=== PATIENT | female | born 1980 | race Caucasian/White ===

== ENCOUNTER 2020-03-31 10:13 | Inpatient (IN) | payer OTHER ==
[2020-03-31 12:20] VITALS: BMI 26.6
[2020-03-31] MEDS ORDERED: ACETAMINOPHEN 325 MG TABLET (FP) PO PRN ×2 (13:00)
[2020-03-31] MEDS ORDERED: MENTHOL/PHENOL 1 EACH UD MM PRN (13:00)
[2020-03-31] MEDS ORDERED: BISMUTH SUBSALICYLATE 524 MG/30 ML UD PO PRN (13:00)
[2020-03-31] MEDS ORDERED: MAG HYDROX/AL HYDROX/SIMETH 30 ML UNIT-DOSE CUP PO PRN (13:00)
[2020-03-31] MEDS ORDERED: MAGNESIUM CITRATE 300 ML BOTTLE PO PRN (13:00)
[2020-03-31] MEDS ORDERED: MAGNESIUM HYDROX 2400MG/30ML ORAL SUSPENSION 30 ML CUP PO PRN (13:00)
[2020-03-31] MEDS ORDERED: ONDANSETRON *ODT* 4 MG TABLET SL PRN (13:00)
[2020-03-31] MEDS ORDERED: NICOTINE POLACRILEX 2 MG GUM BUC PRN (13:00)
[2020-03-31] MEDS ORDERED: METHADONE HCL 10 MG TABLET (FOR DETOX USE ONLY) PO ONE (13:45)
[2020-03-31] MEDS: NICOTINE 7 MG/24 HOURS TOPICAL PATCH TD SCH (13:51)
[2020-03-31] MEDS ORDERED: hydrOXYzine PAMOATE 25 MG CAPSULE (FP) PO SCH (14:00)
[2020-03-31] MEDS ORDERED: ALBUTEROL SO4 HFA INHALER IH PRN (14:55)
[2020-03-31 17:54] LABS: POTASSIUM 3.9 mmol/L (3.5-5.1)
[2020-03-31 17:55] LABS: CALCIUM 8.9 mg/dL (8.5-10.1)
[2020-03-31 17:56] LABS: ALBUMIN 3.8 g/dl (3.4-5.0); BLOOD UREA NITROGEN 13.8 mg/dL (7-18); HEMOGLOBIN 15.4 GM/dL (10.7-15.3); MCH 31.1 pg (25.7-33.7); MCHC 33.5 g/dl (32.0-36.0); MEAN CELL VOLUME 92.8 fl (80-96); MEAN PLT VOLUME 10.2 fl (7.5-11.1); PLATELET COUNT 232 K/MM3 (134-434); RBC 4.95 M/mm3 (3.60-5.2); RDW 13.8 % (11.6-15.6); WHITE BLOOD COUNT 9.2 K/mm3 (4.0-10.0)
[2020-03-31 17:59] LABS: CREATININE 1.2 mg/dL (0.55-1.3)
[2020-03-31 18:00] LABS: BILIRUBIN,TOTAL 0.7 mg/dL (0.2-1); TOT PROT 7.6 g/dl (6.4-8.2)
[2020-03-31 18:54] LABS: HIV INTERPRETATION NEGATIVE (NEGATIVE)
[2020-03-31] MEDS: hydrOXYzine PAMOATE 25 MG CAPSULE (FP) PO PRN (22:31)
[2020-03-31] MEDS: METHOCARBAMOL 500 MG TABLET PO PRN (22:31)
[2020-03-31] MEDS: THIAMINE HCL 100 MG TABLET (FP) PO SCH (22:31)
[2020-03-31] MEDS: MELATONIN 5 MG TABLETS PO SCH (22:32)
[2020-04-01] MEDS: hydrOXYzine PAMOATE 25 MG CAPSULE (FP) PO PRN (05:44)
[2020-04-01] MEDS: cloNIDine HCL 0.1 MG TABLET PO PRN (05:45)
[2020-04-01] MEDS ORDERED: METHADONE HCL 5 MG TABLET (FOR DETOX USE ONLY) ONE (08:57)
[2020-04-01] MEDS ORDERED: METHADONE HCL 10 MG TABLET (FOR DETOX USE ONLY) ONE (08:57)
[2020-04-01] MEDS ORDERED: METHADONE (DETOX) 20 MG, METHADONE (DETOX) 5 MG PO ONE (10:00)
[2020-04-01] MEDS: METHOCARBAMOL 500 MG TABLET PO PRN (10:17)
[2020-04-01] MEDS: NICOTINE 7 MG/24 HOURS TOPICAL PATCH TD SCH (10:18)
[2020-04-01] MEDS: PRENATAL VITAMINS W/ FOLIC ACID TABLET (FP) PO SCH (10:18)
[2020-04-01] MEDS ORDERED: FLU VACCINE (FLULAVAL) PF 60 MCG/0.5 ML SYRINGE 2020-2021 IM ONE (12:00)
[2020-04-01] MEDS: diazePAM 5 MG TABLET PO PRN (22:29)
[2020-04-01] MEDS: THIAMINE HCL 100 MG TABLET (FP) PO SCH (22:30)
[2020-04-01] MEDS: MELATONIN 5 MG TABLETS PO SCH (22:30)
[2020-04-02] MEDS: hydrOXYzine PAMOATE 25 MG CAPSULE (FP) PO PRN (05:25)
[2020-04-02] MEDS: cloNIDine HCL 0.1 MG TABLET PO PRN (05:26)
[2020-04-02] MEDS ORDERED: METHADONE HCL 10 MG TABLET (FOR DETOX USE ONLY) PO ONE (10:00)
[2020-04-02] MEDS: IBUPROFEN 400 MG TABLET (FP) PO PRN (10:32)
[2020-04-02] MEDS: PRENATAL VITAMINS W/ FOLIC ACID TABLET (FP) PO SCH (10:32)
[2020-04-02] MEDS: NICOTINE 7 MG/24 HOURS TOPICAL PATCH TD SCH ×2 (10:32→14:01)
[2020-04-02] MEDS: diazePAM 5 MG TABLET PO PRN ×3 (10:33→19:47)
[2020-04-02] MEDS ORDERED: MASKS NR ONE (12:32)
[2020-04-02] MEDS: THIAMINE HCL 100 MG TABLET (FP) PO SCH (22:30)
[2020-04-02] MEDS: MELATONIN 5 MG TABLETS PO SCH (22:30)
[2020-04-03] MEDS: diazePAM 5 MG TABLET PO PRN ×5 (07:05→22:08)
[2020-04-03] MEDS ORDERED: METHADONE HCL 5 MG TABLET (FOR DETOX USE ONLY) ONE (09:52)
[2020-04-03] MEDS ORDERED: METHADONE HCL 10 MG TABLET (FOR DETOX USE ONLY) ONE (09:53)
[2020-04-03] MEDS ORDERED: METHADONE (DETOX) 10 MG, METHADONE (DETOX) 5 MG PO ONE (10:00)
[2020-04-03] MEDS: PRENATAL VITAMINS W/ FOLIC ACID TABLET (FP) PO SCH (10:19)
[2020-04-03] MEDS: NICOTINE 7 MG/24 HOURS TOPICAL PATCH TD SCH (10:24)
[2020-04-03] MEDS: hydrOXYzine PAMOATE 25 MG CAPSULE (FP) PO PRN ×2 (12:41→22:06)
[2020-04-03] MEDS: METHOCARBAMOL 500 MG TABLET PO PRN (12:41)
[2020-04-03] MEDS: IBUPROFEN 400 MG TABLET (FP) PO PRN (19:38)
[2020-04-03] MEDS: MELATONIN 5 MG TABLETS PO SCH (22:06)
[2020-04-03] MEDS: THIAMINE HCL 100 MG TABLET (FP) PO SCH (22:06)
[2020-04-04] MEDS: diazePAM 5 MG TABLET PO PRN ×3 (06:40→16:26)
[2020-04-04] MEDS: IBUPROFEN 400 MG TABLET (FP) PO PRN ×2 (09:42→17:03)
[2020-04-04] MEDS ORDERED: METHADONE HCL 10 MG TABLET (FOR DETOX USE ONLY) PO ONE (10:00)
[2020-04-04] MEDS: NICOTINE 7 MG/24 HOURS TOPICAL PATCH TD SCH (10:10)
[2020-04-04] MEDS: PRENATAL VITAMINS W/ FOLIC ACID TABLET (FP) PO SCH (10:11)
[2020-04-04] MEDS: METHOCARBAMOL 500 MG TABLET PO PRN ×2 (13:32→22:20)
[2020-04-04] MEDS: MELATONIN 5 MG TABLETS PO SCH (22:20)
[2020-04-04] MEDS: hydrOXYzine PAMOATE 25 MG CAPSULE (FP) PO PRN (22:20)
[2020-04-04] MEDS: THIAMINE HCL 100 MG TABLET (FP) PO SCH (22:20)
[2020-04-05] MEDS ORDERED: METHADONE HCL 5 MG TABLET (FOR DETOX USE ONLY) PO ONE (06:00)
[2020-04-05] MEDS: diazePAM 5 MG TABLET PO PRN (07:08)
[2020-04-05 07:57] VITALS: BP 119/73; PULSE 68; TEMP 97.3
== END 2020-04-05 08:55 | disposition home or self-care (01) | DRG 773 ==
LOC: YASAS 10:13 → Y6N 12:50
PROVIDERS: ADMIT Allergy & Immunology; ATTEND Allergy & Immunology
PROC: HZ2ZZZZ Detoxification Services for Substance Abuse Treatment (ICD-10-PCS; principal; 2020-03-31)
DX: F11.23 Opioid dependence with withdrawal (principal); F10.230 Alcohol dependence with withdrawal, uncomplicated; F14.20 Cocaine dependence, uncomplicated; F12.20 Cannabis dependence, uncomplicated; F17.210 Nicotine dependence, cigarettes, uncomplicated; F19.282 Other psychoactive substance dependence with psychoactive substance-induced sleep disorder; F19.24 Other psychoactive substance dependence with psychoactive substance-induced mood disorder; F34.1 Dysthymic disorder; F43.10 Post-traumatic stress disorder, unspecified; J45.20 Mild intermittent asthma, uncomplicated; L40.9 Psoriasis, unspecified; B18.2 Chronic viral hepatitis C; R63.4 Abnormal weight loss; Z68.26 Body mass index [BMI] 26.0-26.9, adult
CPT/HCPCS: 36415; 80053; 85027; 86780; 87389; 93005; 93010; C9803; J0735; U0003

== ENCOUNTER 2021-05-11 16:35 | Inpatient (IN) | payer OTHER ==
[2021-05-11 17:39] VITALS: BMI 22.2
[2021-05-11] MEDS ORDERED: ACETAMINOPHEN 325 MG TABLET (FP) PO PRN (18:42)
[2021-05-11] MEDS ORDERED: MAGNESIUM CITRATE 300 ML BOTTLE PO PRN (18:42)
[2021-05-11] MEDS ORDERED: BISMUTH SUBSALICYLATE 524 MG/30 ML PO PRN (18:42)
[2021-05-11] MEDS ORDERED: MAG HYDROX/AL HYDROX/SIMETH 30 ML UNIT-DOSE CUP PO PRN (18:42)
[2021-05-11] MEDS ORDERED: NICOTINE 10 MG CARTRIDGE (INHALER) IH PRN (18:42)
[2021-05-11] MEDS ORDERED: ONDANSETRON *ODT* 4 MG TABLET SL PRN (18:42)
[2021-05-11] MEDS ORDERED: MAGNESIUM HYDROX 2400MG/30ML ORAL SUSPENSION 30 ML CUP PO PRN (18:42)
[2021-05-11] MEDS ORDERED: MENTHOL/PHENOL 1 EACH UD MM PRN (18:42)
[2021-05-11] MEDS ORDERED: cloNIDine HCL 0.1 MG TABLET PO PRN (18:43)
[2021-05-11] MEDS ORDERED: ALBUTEROL SO4 HFA INHALER IH PRN ×2 (18:52→19:14)
[2021-05-11] MEDS ORDERED: METHOCARBAMOL 500 MG TABLET ONE (23:24)
[2021-05-11] MEDS ORDERED: ACETAMINOPHEN 325 MG TABLET (FP) ONE (23:24)
[2021-05-11] MEDS: PRENATAL VITAMINS W/ FOLIC ACID TABLET (FP) PO SCH (23:26)
[2021-05-11] MEDS: THIAMINE HCL 100 MG TABLET (FP) PO SCH (23:27)
[2021-05-11] MEDS: hydrOXYzine PAMOATE 25 MG CAPSULE (FP) PO SCH (23:27)
[2021-05-11] MEDS: MELATONIN 5 MG TABLETS PO SCH (23:27)
[2021-05-11] MEDS: METHOCARBAMOL 500 MG TABLET PO PRN (23:27)
[2021-05-11] MEDS: ACETAMINOPHEN 325 MG TABLET (FP) PO PRN (23:28)
[2021-05-12] MEDS: hydrOXYzine PAMOATE 25 MG CAPSULE (FP) PO SCH ×5 (05:30→21:39)
[2021-05-12] MEDS: ACETAMINOPHEN 325 MG TABLET (FP) PO PRN ×2 (05:30→21:39)
[2021-05-12] MEDS: METHOCARBAMOL 500 MG TABLET PO PRN ×2 (05:30→17:14)
[2021-05-12] MEDS: PRENATAL VITAMINS W/ FOLIC ACID TABLET (FP) PO SCH (10:45)
[2021-05-12] MEDS ORDERED: cloNIDine HCL 0.1 MG TABLET PO PRN (11:02)
[2021-05-12] MEDS ORDERED: methaDONE HCL 10 MG TABLET (FOR DETOX USE ONLY) PO ONE (11:02)
[2021-05-12 12:17] LABS: ALBUMIN 2.7 g/dl (3.4-5.0); BLOOD UREA NITROGEN 11.7 mg/dL (7-18); CALCIUM 7.8 mg/dL (8.5-10.1)
[2021-05-12 12:19] LABS: CREATININE 0.7 mg/dL (0.55-1.3)
[2021-05-12 12:20] LABS: HEMATOCRIT 38.7 % (32.4-45.2); HEMOGLOBIN 12.7 GM/dL (10.7-15.3); MCHC 32.9 g/dl (32.0-36.0); MEAN CELL VOLUME 91.4 fl (80-96); MEAN PLT VOLUME 10.4 fl (7.5-11.1); PLATELET COUNT 115 10^3/uL (134-434); RBC 4.24 M/mm3 (3.60-5.2); WHITE BLOOD COUNT 3.1 K/mm3 (4.0-10.0)
[2021-05-12 12:22] LABS: BILIRUBIN,TOTAL 0.7 mg/dL (0.2-1)
[2021-05-12] MEDS: MELATONIN 5 MG TABLETS PO SCH (21:39)
[2021-05-12] MEDS: THIAMINE HCL 100 MG TABLET (FP) PO SCH (21:39)
[2021-05-13] MEDS: hydrOXYzine PAMOATE 25 MG CAPSULE (FP) PO SCH ×4 (07:17→18:29)
[2021-05-13] MEDS: METHOCARBAMOL 500 MG TABLET PO PRN ×2 (07:36→21:18)
[2021-05-13] MEDS: ACETAMINOPHEN 325 MG TABLET (FP) PO PRN (07:36)
[2021-05-13] MEDS ORDERED: methaDONE HCL 10 MG TABLET (FOR DETOX USE ONLY) ONE (09:42)
[2021-05-13] MEDS: PRENATAL VITAMINS W/ FOLIC ACID TABLET (FP) PO SCH (10:38)
[2021-05-13] MEDS: IBUPROFEN 400 MG TABLET (FP) PO PRN (21:18)
[2021-05-14] MEDS: MELATONIN 5 MG TABLETS PO SCH ×2 (00:05→23:25)
[2021-05-14] MEDS: hydrOXYzine PAMOATE 25 MG CAPSULE (FP) PO SCH ×6 (00:05→23:25)
[2021-05-14] MEDS: THIAMINE HCL 100 MG TABLET (FP) PO SCH ×2 (00:05→23:25)
[2021-05-14] MEDS: METHOCARBAMOL 500 MG TABLET PO PRN (06:23)
[2021-05-14] MEDS: IBUPROFEN 400 MG TABLET (FP) PO PRN (06:23)
[2021-05-14] MEDS ORDERED: methaDONE HCL 10 MG TABLET (FOR DETOX USE ONLY) PO ONE (10:00)
[2021-05-14] MEDS: PRENATAL VITAMINS W/ FOLIC ACID TABLET (FP) PO SCH (10:31)
[2021-05-14] MEDS: CALCIUM CARBONATE 650 MG TABLET PO SCH (23:25)
[2021-05-15] MEDS: hydrOXYzine PAMOATE 25 MG CAPSULE (FP) PO SCH ×5 (06:15→23:23)
[2021-05-15] MEDS: METHOCARBAMOL 500 MG TABLET PO PRN (06:15)
[2021-05-15] MEDS ORDERED: methaDONE HCL 10 MG TABLET (FOR DETOX USE ONLY) ONE (09:21)
[2021-05-15] MEDS: CALCIUM CARBONATE 650 MG TABLET PO SCH ×2 (11:30→23:23)
[2021-05-15] MEDS: PRENATAL VITAMINS W/ FOLIC ACID TABLET (FP) PO SCH (11:31)
[2021-05-15] MEDS: THIAMINE HCL 100 MG TABLET (FP) PO SCH (23:23)
[2021-05-15] MEDS: MELATONIN 5 MG TABLETS PO SCH (23:23)
[2021-05-16] MEDS: hydrOXYzine PAMOATE 25 MG CAPSULE (FP) PO SCH ×5 (06:12→23:07)
[2021-05-16] MEDS ORDERED: methaDONE HCL 10 MG TABLET (FOR DETOX USE ONLY) PO ONE (10:00)
[2021-05-16] MEDS: CALCIUM CARBONATE 650 MG TABLET PO SCH ×2 (10:38→23:06)
[2021-05-16] MEDS: PRENATAL VITAMINS W/ FOLIC ACID TABLET (FP) PO SCH (10:38)
[2021-05-16] MEDS: METHOCARBAMOL 500 MG TABLET PO PRN (23:06)
[2021-05-16] MEDS: MELATONIN 5 MG TABLETS PO SCH (23:06)
[2021-05-16] MEDS: THIAMINE HCL 100 MG TABLET (FP) PO SCH (23:07)
[2021-05-17] MEDS: hydrOXYzine PAMOATE 25 MG CAPSULE (FP) PO SCH ×4 (06:42→17:52)
[2021-05-17] MEDS: CALCIUM CARBONATE 650 MG TABLET PO SCH (10:55)
[2021-05-17] MEDS: PRENATAL VITAMINS W/ FOLIC ACID TABLET (FP) PO SCH (10:56)
[2021-05-17] MEDS: THIAMINE HCL 100 MG TABLET (FP) PO SCH (22:12)
[2021-05-17] MEDS: MELATONIN 5 MG TABLETS PO SCH (22:12)
[2021-05-18] MEDS: PRENATAL VITAMINS W/ FOLIC ACID TABLET (FP) PO SCH (11:41)
[2021-05-18] MEDS ORDERED: METHOCARBAMOL 500 MG TABLET PO PRN (19:45)
[2021-05-18] MEDS: THIAMINE HCL 100 MG TABLET (FP) PO SCH (23:34)
[2021-05-18] MEDS: MELATONIN 5 MG TABLETS PO SCH (23:34)
[2021-05-19] MEDS: PRENATAL VITAMINS W/ FOLIC ACID TABLET (FP) PO SCH (11:39)
[2021-05-19] MEDS: MELATONIN 5 MG TABLETS PO SCH (23:25)
[2021-05-19] MEDS: THIAMINE HCL 100 MG TABLET (FP) PO SCH (23:25)
[2021-05-20 09:39] VITALS: BP 103/60; PULSE 71; TEMP 98.2
== END 2021-05-20 11:37 | disposition home or self-care (01) | DRG 773 ==
LOC: YASAS 16:35 → Y3N 05-12 00:06 → UNDOADMIN 05-12 00:06
PROVIDERS: ADMIT Allergy & Immunology; ATTEND Allergy & Immunology
PROC: HZ2ZZZZ Detoxification Services for Substance Abuse Treatment (ICD-10-PCS; principal; 2021-05-12)
DX: F11.23 Opioid dependence with withdrawal (principal); F14.20 Cocaine dependence, uncomplicated; F17.210 Nicotine dependence, cigarettes, uncomplicated; U07.1 COVID-19; E46 Unspecified protein-calorie malnutrition; E83.51 Hypocalcemia; I95.9 Hypotension, unspecified; D69.6 Thrombocytopenia, unspecified; Z68.22 Body mass index [BMI] 22.0-22.9, adult; J45.909 Unspecified asthma, uncomplicated; B18.2 Chronic viral hepatitis C; L40.9 Psoriasis, unspecified; Z56.0 Unemployment, unspecified
CPT/HCPCS: 36415; 80053; 81025; 85027; 86780; C9803; U0003; U0005